=== PATIENT | male | born 1975 | race Caucasian/White ===

== ENCOUNTER → 2018-04-17 | Outpatient (CLI) | payer OTHER ==
--- NOTE | 2018-04-17 17:27 | RAD ---
History: Injury a few weeks ago. Comparison: March 31, 2018. Findings: AP, lateral, and oblique views of the left foot. The lucency involving the proximal 4th metatarsal is again seen, although it is uncertain if this represents a Mach line or represent subacute fracture. This is not confirmed on other views. Small plantar calcaneal enthesophyte is present. Small Achilles tendon insertional enthesophyte is seen. Os trigonum is seen. Impression: Persistent lucency of the proximal 4th metatarsal, could be Mach line versus nondisplaced fracture. Electronically signed by: Gaston Andrews MD (04/17/2018 5:23 PM) [email or web address]
== END | disposition home or self-care (01) ==
LOC: RAD 13:22
PROVIDERS: ATTEND Orthopaedic Surgery Sports Medicine
DX: M89.8X7 Other specified disorders of bone, ankle and foot (principal)
CPT/HCPCS: 73630